=== PATIENT | female | born 1950 | race Caucasian/White ===

== ENCOUNTER 2016-11-11 18:19 | Emergency (ER) | payer MEDICARE, OTHER ==
[~2016-11-11] VITALS: Ht 167.6 cm; Wt 129.7 kg
--- NOTE | 2016-11-11 18:19 | NUR ---
Patient to ER bed 3 to gown for evaluation. Side rails up. Report given to FIOR Baker.
--- NOTE | 2016-11-11 18:22 | NUR ---
Patient came for [facility] Via ambulance transport. Patient is awake, alert and oriented x 4. Patient states that she has been feeling lightheaded, nausea and vomiting today with hypotension. Blood Pressure is currently 81/43. Denies any pain. No other complaints per patient or as noted.
[2016-11-11] MEDS ORDERED: PIPERACILLIN/TAZO 3.38 GM in NS 50 ML IV ONE (18:30)
[2016-11-11] MEDS ORDERED: NACL 0.9% 1,000 ML IV ONE (18:30)
[2016-11-11 18:34] VITALS: BP 81/53; PULSE 93; RESP 11; TEMP 97.7; O2SAT 97
[2016-11-11 18:56] LABS: EOSINOPHILS % (AUTO) 0.2 % (0.0-4.0); HEMOGLOBIN 9.1 g/dL (12.0-16.0); MEAN CORPUSCULAR VOLUME 94 fL (79.0-98.0)
[2016-11-11 19:04] LABS: BASOPHILS # (AUTO) 0.2 K/uL (0.0-0.2); BASOPHILS % (AUTO) 1.8 % (0.0-2.0); LYMPHOCYTES # (AUTO) 1.9 K/uL (1.0-5.5); LYMPHOCYTES % (AUTO) 21.3 % (20.5-51.5); MEAN CORPUSCULAR HEMOGLOBIN 31 pg (27-31); MEAN CORPUSCULAR HGB CONC 33 % (32-36); MONOCYTES # (AUTO) 0.4 K/uL (0.0-1.0); MONOCYTES % (AUTO) 4.1 % (1.7-9.3); NEUTROPHILS # (AUTO) 6.6 K/uL (1.8-7.7); NEUTROPHILS % (AUTO) 72.6 % (40.0-70.0); PLATELET COUNT (AUTO) 241 K/uL (130-430); RED BLOOD CELL COUNT(AUTO) 2.97 MIL/uL (4.2-6.2); RED CELL DISTRIBUTION WIDTH 14.5 % (9.0-15.0); WHITE BLOOD COUNT (AUTO) 9.1 K/uL (4.8-10.8)
--- NOTE | 2016-11-11 19:05 | NUR ---
ER MD Deras at bedside evaluating the patient
[2016-11-11] MEDS ORDERED: PIPERACILLIN/TAZOBACTAM 3.375 GM/VIAL (ZOSYN) IV ONE (19:12)
[2016-11-11 19:17] LABS: INR 1.5 (0.8-1.2); PROTHROMBIN TIME 16.6 SECS (9.5-12.5)
[2016-11-11 19:20] LABS: CHLORIDE 101 mmol/L (98-107); CREATININE 1.01 mg/dL (0.55-1.30); GLUCOSE 71 mg/dL (70-99); POTASSIUM 3.4 mmol/L (3.5-5.1); SODIUM SERUM 134 mmol/L (136-145); UREA NITROGEN, BLOOD 4 mg/dL (8-21)
[2016-11-11 19:25] LABS: ALANINE AMINOTRANSFERASE 50 U/L (12-78); ALBUMIN 1.1 g/dL (3.4-4.8); ASPARTATE AMINOTRANSFERASE 113 U/L (10-37); LIPASE 26 U/L (73-393); TOTAL BILIRUBIN 1.1 mg/dL (0.0-1.0); TOTAL PROTEIN, SERUM 5.1 g/dL (6.4-8.3)
--- NOTE | 2016-11-11 19:28 | NUR ---
Attempted US guided IV acess to right upper arm unable to obtain access.
[2016-11-11 19:30] LABS: ANION GAP < 3 (5-15); CALCIUM 6.2 mg/dL (8.4-11.0); GFR AFRICAN AMERICAN 70 mL/min (>90)
[2016-11-11] MEDS ORDERED: NACL 0.9% 1,000 ML IV SCH (19:54)
--- NOTE | 2016-11-11 20:10 | NUR ---
# 16 FR Pierre catheter with use of sterile technique. Immediate return of 300 cc YELLOW urine noted. Bedside drainage bag placed below level of bladder. Urine sample collected and sent to lab. Pt tolerated procedure well. Patient unable to toilet self.
[2016-11-11 20:55] LABS: BILIRUBIN,URINE NEGATIVE (NEGATIVE); BLOOD, URINE NEGATIVE (NEGATIVE); CLARITY/URINE SL HAZY (CLEAR); COLOR,URINE YELLOW (YELLOW); GLUCOSE,URINE NEGATIVE (NEGATIVE); KETONES,URINE NEGATIVE (NEGATIVE); LEUKOCYTE ESTERASE ,URINE NEGATIVE (NEGATIVE); NITRITE, URINE NEGATIVE (NEGATIVE); PROTEIN URINE NEGATIVE (NEGATIVE); UROBILINOGEN,URINE 0.2 (0.2-1.0)
[2016-11-11 21:14] LABS: BACTERIA,URINE FEW /HPF (None Seen); MUCUS,URINE None Seen /LPF (None Seen); RBC,URINE NONE SEEN /HPF (0-3)
[2016-11-11] MEDS ORDERED: SERT-131 PO (21:14)
[2016-11-11] MEDS ORDERED: CALC-226 PO (21:14)
[2016-11-11] MEDS ORDERED: SENN-153 PO (21:14)
[2016-11-11] MEDS ORDERED: FURO-150 PO (21:14)
[2016-11-11] MEDS ORDERED: METO-290 PO (21:14)
[2016-11-11] MEDS ORDERED: AMI200 PO (21:14)
[2016-11-11] MEDS ORDERED: CETI10CA PO (21:14)
[2016-11-11] MEDS ORDERED: FOLI-43 PO (21:14)
[2016-11-11] MEDS ORDERED: AMIN30LI2 PO (21:14)
[2016-11-11] MEDS ORDERED: SUCR1TAB78 PO (21:14)
[2016-11-11] MEDS ORDERED: CALA180L6 TP (21:14)
[2016-11-11] MEDS ORDERED: ATOR40TA68 PO (21:14)
[2016-11-11] MEDS ORDERED: PRO40 PO (21:14)
[2016-11-11] MEDS ORDERED: POTA-80 PO (21:14)
--- NOTE | 2016-11-11 21:16 | NUR ---
Family at bedside. Patient calm, no signs of acute distress.
[2016-11-11] MEDS ORDERED: CALCIUM GLUCONATE 1 GM in NS 100 ML IV ONE (22:15)
[2016-11-11] MEDS ORDERED: CALCIUM GLUCONATE 1 GM/10 ML VIAL ONE (22:19)
[2016-11-11 23:10] VITALS: BP 102/54; PULSE 86; RESP 16; TEMP 98.1; O2SAT 99
--- NOTE | 2016-11-11 23:10 | NUR ---
Patient to be transferred to [facility] ER. Is being transferred due to higher level of care. Receiving facility has accepting physician and available space. ER MD Pagan physician has signed transfer form. Patient or responsible green party has agreed to transfer and signed form. Patient belongings inventoried and will be sent with patient. Copy of nursing notes, lab reports, EKG, Physicians Orders and X-rays to be sent with patient. Report called to Bandar CHILDRESS at receiving facility. Receiving physician is Mika. Ambulance service here picking up the patient. Report given to Bandar who was informed of all abnormal labs and patient presentation.
== END 2016-11-11 23:10 | disposition short-term general hospital (02) ==
LOC: SED 18:19
DX: K52.9 Noninfective gastroenteritis and colitis, unspecified (principal); E86.0 Dehydration; E83.51 Hypocalcemia; J18.1 Lobar pneumonia, unspecified organism; Z88.2 Allergy status to sulfonamides; J44.9 Chronic obstructive pulmonary disease, unspecified; E78.00 Pure hypercholesterolemia, unspecified; I10 Essential (primary) hypertension; I48.91 Unspecified atrial fibrillation
CPT/HCPCS: 36415; 51702; 71010; 74176; 80053; 81000; 83605; 83690; 84484; 85025; 85610; 93005; 96361; 96365; 96367; 99285; J0610; J2543; J7030; 87040-TC